=== PATIENT | male | born 1975 | race Caucasian/White ===

== ENCOUNTER 2020-02-20 21:47 | Inpatient (IN) | payer OTHER ==
[~2020-02-20] VITALS: Ht 190.5 cm; Wt 149.0 kg
[~2020-02-20 21:47] MED LIST: AMLO10TA4 PO; AMLO5TAB4 PO; CEFU500T PO; LISI-167 PO; LISI-170 PO; METH4TAB2 PO
--- NOTE | 2020-02-20 22:02 | NUR ---
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
[2020-02-20] MEDS ORDERED: SODIUM CHLORIDE FLUSH 10ML SYR IVF ONE (22:30)
[2020-02-20 22:48] LABS: MEAN CORPUSCULAR HEMOGLOBIN 30.6 pg (27.5-34.5); MEAN CORPUSCULAR HGB CONC 32.6 g/dL (33.2-36.2); MEAN PLATELET VOLUME 8.4 fL (7.4-10.4); PLATELET COUNT 310 x10^3/uL (130-400); RED BLOOD COUNT 5.15 x10^6/uL (4.38-5.82); RED CELL DISTRIBUTION WIDTH 16.7 % (9.4-14.8)
[2020-02-20 22:56] LABS: BASOPHILS # (AUTO) 0.29 x10^3/uL (0-0.1); BASOPHILS % (AUTO) 2 % (0-1); EOSINOPHILS # (AUTO) 0.32 x10^3/uL (0-0.4); EOSINOPHILS % (AUTO) 2 % (1-7); LYMPHOCYTES # (AUTO) 2.58 x10^3/uL (1-3.4); LYMPHOCYTES % (AUTO) 17 % (22-44); MD NO; MONOCYTES # (AUTO) 1.19 x10^3/uL (0.2-0.8); MONOCYTES % (AUTO) 8 % (2-9); NEUTROPHILS # (AUTO) 10.82 x10^3/uL (1.8-6.8); NEUTROPHILS % (AUTO) 71 % (42-75)
[2020-02-20 22:58] LABS: ALANINE AMINOTRANSFERASE 63 U/L (12-78); ALBUMIN 2.9 g/dL (3.4-5.0); ANION GAP 7 mmol/L (5-15); CALCIUM 8.7 mg/dL (8.5-10.1); CHLORIDE 108 mmol/L (98-107); CREATININE 1.33 mg/dL (0.7-1.3)
[2020-02-20 23:03] LABS: ALKALINE PHOSPHATASE 80 U/L (45-117); BILIRUBIN,TOTAL 0.9 mg/dL (0.2-1.0); TOTAL PROTEIN 6.5 g/dL (6.4-8.2); TROPONIN I 0.058 ng/mL (0.000-0.045)
[2020-02-20] MEDS ORDERED: NITROGLYCERIN OINT 2%, 1GM TP ONE ×2 (23:17→23:30)
[2020-02-20] MEDS ORDERED: LABETALOL 20 MG/4 ML ONE (23:17)
[2020-02-20] MEDS ORDERED: FUROSEMIDE 40 MG/4 ML ONE (23:17)
[2020-02-20] MEDS ORDERED: ASPIRIN 81 MG TABLET CHEW ONE (23:17)
[2020-02-20] MEDS ORDERED: FUROSEMIDE 40 MG/4 ML IV ONE (23:30)
[2020-02-20] MEDS ORDERED: ASPIRIN 81 MG TABLET CHEW PO ONE (23:30)
[2020-02-20] MEDS ORDERED: LABETALOL 5MG/ML, 20ML IVPush ONE (23:30)
--- NOTE | 2020-02-20 23:50 | NUR ---
Attempted report [phone] at [phone]
--- NOTE | 2020-02-20 23:58 | NUR ---
Report given to Dayanna [email or web address]
[2020-02-21] MEDS ORDERED: ACETAMINOPHEN 325 MG TABLET PO PRN
[2020-02-21] MEDS ORDERED: BISACODYL 10 MG SUPP PR PRN
[2020-02-21] MEDS ORDERED: POLYETHYLENE GLYCOL 17 GM PACKET PO PRN
[2020-02-21] MEDS ORDERED: ONDANSETRON ODT 4 MG PO PRN
[2020-02-21 00:25] VITALS: BP 122/79
[2020-02-21] MEDS: SODIUM CHLORIDE FLUSH 10ML SYR IVF SCH ×3 (01:09→20:16)
[2020-02-21] MEDS: HEPARIN 5,000 UNITS/ML, 1ML SQ SCH ×3 (01:09→17:26)
[2020-02-21 02:31] LABS: MICROSCOPIC AUTO
[2020-02-21 05:30] LABS: BASOPHILS # (AUTO) 0.04 x10^3/uL (0-0.1); BASOPHILS % (AUTO) 0 % (0-1); EOSINOPHILS # (AUTO) 0.45 x10^3/uL (0-0.4); EOSINOPHILS % (AUTO) 4 % (1-7); LYMPHOCYTES % (AUTO) 19 % (22-44); MD NO; MEAN CORPUSCULAR HEMOGLOBIN 30.5 pg (27.5-34.5); MEAN PLATELET VOLUME 8.5 fL (7.4-10.4); MONOCYTES # (AUTO) 1.19 x10^3/uL (0.2-0.8); MONOCYTES % (AUTO) 10 % (2-9); NEUTROPHILS # (AUTO) 8.33 x10^3/uL (1.8-6.8); NEUTROPHILS % (AUTO) 67 % (42-75); PLATELET COUNT 301 x10^3/uL (130-400); RED BLOOD COUNT 4.88 x10^6/uL (4.38-5.82); RED CELL DISTRIBUTION WIDTH 16.4 % (9.4-14.8)
[2020-02-21 05:31] LABS: ANION GAP 6 mmol/L (5-15); CALCIUM 8.5 mg/dL (8.5-10.1); CHLORIDE 107 mmol/L (98-107); CHOLESTEROL, TOTAL 130 mg/dL (140-239); CREATININE 1.22 mg/dL (0.7-1.3)
[2020-02-21 05:36] LABS: CHOL/HDL RATIO 5.2; HDL CHOL % 19 % (26-37); HDL CHOLESTEROL (DIRECT) 25 mg/dL (40-60); LDL CHOLESTEROL,CALCULATED 68 mg/dL (54-169); LDL/HDL RATIO 2.7 (0.5-3.0); TRIGLYCERIDES 187 mg/dL (50-200); TROPONIN I 0.051 ng/mL (0.000-0.045); VLDL CHOLESTEROL 37 mg/dL (0-25)
[2020-02-21] MEDS ORDERED: ASPIRIN 325 MG TABLET EC PO SCH (06:00)
[2020-02-21] MEDS: ASPIRIN 81 MG TABLET EC PO SCH (06:33)
[2020-02-21] MEDS: CARVEDILOL 3.125 MG TABLET PO SCH ×2 (06:33→17:26)
[2020-02-21 06:59] VITALS: BP 140/99
[2020-02-21] MEDS: FUROSEMIDE 40 MG/4 ML IV SCH ×2 (08:59→17:26)
[2020-02-21] MEDS: LISINOPRIL 20 MG TABLET PO SCH ×2 (09:00→20:16)
[2020-02-21] MEDS: SENNA/DOCUSATE TABLET PO SCH (09:00)
[2020-02-21 11:00] LABS: TROPONIN I 0.037 ng/mL (0.000-0.045)
[2020-02-21 14:00] VITALS: BP 119/92
[2020-02-21 19:27] VITALS: BP 144/91
[2020-02-22 00:04] VITALS: BP 110/77
[2020-02-22] MEDS: HEPARIN 5,000 UNITS/ML, 1ML SQ SCH ×3 (01:07→17:46)
[2020-02-22 05:09] LABS: MEAN CORPUSCULAR HEMOGLOBIN 30.1 pg (27.5-34.5); MEAN CORPUSCULAR HGB CONC 31.4 g/dL (33.2-36.2); MEAN PLATELET VOLUME 8.3 fL (7.4-10.4); PLATELET COUNT 319 x10^3/uL (130-400); RED CELL DISTRIBUTION WIDTH 16.8 % (9.4-14.8)
[2020-02-22 05:16] LABS: ANION GAP 5 mmol/L (5-15); CHLORIDE 109 mmol/L (98-107); CREATININE 1.09 mg/dL (0.7-1.3)
[2020-02-22 05:55] LABS: BASOPHILS % (AUTO) 1 % (0-1); EOSINOPHILS # (AUTO) 0.44 x10^3/uL (0-0.4); EOSINOPHILS % (AUTO) 4 % (1-7); LYMPHOCYTES # (AUTO) 2.03 x10^3/uL (1-3.4); LYMPHOCYTES % (AUTO) 16 % (22-44); MD SCAN; MONOCYTES # (AUTO) 0.97 x10^3/uL (0.2-0.8); MONOCYTES % (AUTO) 8 % (2-9); NEUTROPHILS # (AUTO) 8.92 x10^3/uL (1.8-6.8); NEUTROPHILS % (AUTO) 72 % (42-75)
[2020-02-22] MEDS: ASPIRIN 81 MG TABLET EC PO SCH (05:55)
[2020-02-22] MEDS: CARVEDILOL 3.125 MG TABLET PO SCH (05:55)
[2020-02-22 07:05] VITALS: BP 135/98
[2020-02-22] MEDS: FUROSEMIDE 40 MG/4 ML IV SCH ×2 (08:27→17:45)
[2020-02-22] MEDS: SENNA/DOCUSATE TABLET PO SCH (08:29)
[2020-02-22] MEDS: LISINOPRIL 20 MG TABLET PO SCH ×2 (08:29→22:03)
[2020-02-22] MEDS: SODIUM CHLORIDE FLUSH 10ML SYR IVF SCH ×2 (08:29→22:03)
[2020-02-22 13:42] VITALS: BP 138/100
[2020-02-22 14:47] VITALS: BP 128/91
[2020-02-22] MEDS: CARVEDILOL 12.5 MG TABLET PO SCH (17:46)
[2020-02-22 21:28] VITALS: BP 129/87
[2020-02-22] MEDS: ATORVASTATIN 40 MG TABLET PO SCH (22:03)
[2020-02-23] VITALS (7 sets, daily range): BP systolic 125–147; BP diastolic 87–112
[2020-02-23] MEDS: HEPARIN 5,000 UNITS/ML, 1ML SQ SCH ×3 (02:53→18:21)
[2020-02-23 05:27] LABS: CHLORIDE 107 mmol/L (98-107)
[2020-02-23 05:37] LABS: ANION GAP 5 mmol/L (5-15); CALCIUM 8.6 mg/dL (8.5-10.1); CREATININE 0.97 mg/dL (0.7-1.3); TROPONIN I 0.043 ng/mL (0.000-0.045)
[2020-02-23] MEDS: CARVEDILOL 12.5 MG TABLET PO SCH (06:34)
[2020-02-23] MEDS: ASPIRIN 81 MG TABLET EC PO SCH (06:34)
[2020-02-23] MEDS: FUROSEMIDE 40 MG/4 ML IV SCH ×2 (08:23→16:41)
[2020-02-23] MEDS: SODIUM CHLORIDE FLUSH 10ML SYR IVF SCH ×2 (08:24→21:08)
[2020-02-23] MEDS ORDERED: REGADENOSON 0.4 MG/5 ML SYRINGE ONE (08:48)
[2020-02-23] MEDS: SENNA/DOCUSATE TABLET PO SCH (09:00)
[2020-02-23] MEDS ORDERED: CARVEDILOL 12.5 MG TABLET PO ONE (09:00)
[2020-02-23] MEDS: LISINOPRIL 20 MG TABLET PO SCH ×2 (11:13→21:08)
[2020-02-23 12:04] LABS: FIO2 ROOM AIR %
[2020-02-23] MEDS: CARVEDILOL 25 MG TABLET PO SCH (18:21)
[2020-02-23] MEDS: ATORVASTATIN 40 MG TABLET PO SCH (21:07)
[2020-02-23] MEDS: ACETAMINOPHEN 325 MG TABLET PO PRN (21:08)
[2020-02-24] MEDS: HEPARIN 5,000 UNITS/ML, 1ML SQ SCH ×3 (02:28→17:39)
[2020-02-24] MEDS: ASPIRIN 81 MG TABLET EC PO SCH (05:07)
[2020-02-24] MEDS: CARVEDILOL 25 MG TABLET PO SCH ×2 (05:08→17:41)
[2020-02-24 06:58] VITALS: BP 137/94
[2020-02-24] MEDS: LISINOPRIL 20 MG TABLET PO SCH ×2 (07:59→20:30)
[2020-02-24] MEDS: SENNA/DOCUSATE TABLET PO SCH (07:59)
[2020-02-24] MEDS: SODIUM CHLORIDE FLUSH 10ML SYR IVF SCH ×2 (08:00→20:35)
[2020-02-24] MEDS: FUROSEMIDE 40 MG/4 ML IV SCH ×2 (08:00→17:39)
[2020-02-24] MEDS: SPIRONOLACTONE 25 MG TABLET PO SCH (10:09)
[2020-02-24 13:06] VITALS: BP 144/98
[2020-02-24] MEDS: ACETAMINOPHEN 325 MG TABLET PO PRN (13:51)
[2020-02-24 20:26] VITALS: BP 130/72
[2020-02-24] MEDS: ATORVASTATIN 40 MG TABLET PO SCH (20:30)
[2020-02-25 00:45] VITALS: BP 143/94
[2020-02-25] MEDS: HEPARIN 5,000 UNITS/ML, 1ML SQ SCH ×2 (01:28→08:21)
[2020-02-25] MEDS: ACETAMINOPHEN 325 MG TABLET PO PRN (01:31)
[2020-02-25 05:27] VITALS: BP 114/86
[2020-02-25] MEDS: CARVEDILOL 25 MG TABLET PO SCH (05:30)
[2020-02-25] MEDS: ASPIRIN 81 MG TABLET EC PO SCH (05:30)
[2020-02-25 08:15] VITALS: BP 126/95
[2020-02-25] MEDS: FUROSEMIDE 40 MG/4 ML IV SCH (08:20)
[2020-02-25] MEDS: SENNA/DOCUSATE TABLET PO SCH (08:20)
[2020-02-25] MEDS: SPIRONOLACTONE 25 MG TABLET PO SCH (08:20)
[2020-02-25] MEDS: LISINOPRIL 20 MG TABLET PO SCH (08:20)
[2020-02-25] MEDS: SODIUM CHLORIDE FLUSH 10ML SYR IVF SCH (08:24)
[2020-02-25] MEDS ORDERED: ATOR40TA78 PO (10:19)
[2020-02-25] MEDS ORDERED: SPIR25TA PO (10:19)
[2020-02-25] MEDS ORDERED: FURO40TA6 PO (10:19)
[2020-02-25] MEDS ORDERED: ASPI81TA45 PO (10:19)
[2020-02-25] MEDS ORDERED: CARV25TA12 PO (10:19)
[2020-02-25 12:14] VITALS: BP 133/98
== END 2020-02-25 15:31 | disposition home or self-care (01) | DRG 291 ==
LOC: ED 22:43 → EDIP 23:26 → 5SO 02-21 00:17 → DCLOUNGE 02-25 15:11
PROVIDERS: ADMIT Family Medicine; ATTEND Internal Medicine
DX: I11.0 Hypertensive heart disease with heart failure (principal); I50.21 Acute systolic (congestive) heart failure; Z68.41 Body mass index [BMI] 40.0-44.9, adult; N17.9 Acute kidney failure, unspecified; E66.01 Morbid (severe) obesity due to excess calories; Z71.3 Dietary counseling and surveillance; F12.10 Cannabis abuse, uncomplicated
CPT/HCPCS: 36415; 36600; 71045; 78452; 80048; 80053; 80061; 81001; 82803; 83036; 83735; 83880; 84443; 84484; 85025; 93005; 93017; 93306; 96374; G0378; J1644; J1940; J2785; A9502